=== PATIENT | female | born 1965 | race Asian ===

== ENCOUNTER → 2016-10-08 | Outpatient (CLI) | payer BC ==
[2015-12-28 12:00] VITALS: BP 117/79
--- NOTE | 2016-10-08 16:55 | RAD ---
Pelvic ultrasound to include transabdominal and transvaginal imaging 10/08/2016 Clinical history: Pelvic pain for several months. Technique: Using the distended urinary bladder as a sonographic window, a real-time ultrasound examination of the pelvis was performed. Additionally in attempt to better evaluate the uterus and adnexa, a transvaginal ultrasound study was performed. Multiple images were obtained. Findings: Comparison is made to a CT scan of the abdomen and pelvis dated 08/04/2014. The uterus is normal in size. It measures 8.1 x 5.5 x 4.2 cm in longitudinal, transverse, and AP dimensions. 2 hypoechoic masses consistent with fibroids are seen within the superior uterine body/fundus. These measure 1.2. and 2.1 cm in size. Fluid is seen within the endometrial canal. The endometrial echo complex is not thickened. It measures 4 mm. Nabothian cysts are seen within the cervix which measure 5 mm to 1.4 cm in size. Both ovaries are within normal limits in size and echogenicity. The right ovary measures 1.5 x 1.2 x 1.4 cm in size. Left ovary measures 1.9 x 1.8 x 1.6 cm in size. No adnexal mass is seen. No free fluid is noted. Impression: 1. 2 fibroids are seen within the uterus. These measure 1.2 and 2.1 cm in size. 2. Fluid is seen within the endometrial canal.
== END | disposition home or self-care (01) ==
LOC: US 13:45
PROVIDERS: ATTEND Advanced Practice Midwife
DX: D25.9 Leiomyoma of uterus, unspecified (principal); R10.2 Pelvic and perineal pain
CPT/HCPCS: 76830; 76856

== ENCOUNTER → 2017-05-29 | Day surgery (SDC) | payer BC ==
[2015-12-28 12:00] VITALS: BP 117/79
[~2017-05-29] MED LIST: IV RINGERS SOLUTION,LACTATED 1,000 ML IV ONE; LIDOCAINE 2% PF Vial for OR 5 ML VIAL. ONE; PROPOFOL 20 ML IV ONE
== END | disposition home or self-care (01) ==
LOC: SURG 11:33
PROVIDERS: ATTEND Internal Medicine Gastroenterology
DX: K92.89 Other specified diseases of the digestive system (principal); E03.9 Hypothyroidism, unspecified; I10 Essential (primary) hypertension; Z98.890 Other specified postprocedural states
CPT/HCPCS: 43239; J2704; J3010; J7120; J2001

== ENCOUNTER 2019-05-19 22:34 | Emergency (ER) | payer BC ==
[~2019-05-19] VITALS: Ht 154.9 cm; Wt 46.3 kg
[2019-05-19] MEDS ORDERED: cloNIDine HCL 0.1 MG TABLET PO ONE (23:15)
[2019-05-19 23:45] LABS: BASO # 0.1 x10^3/uL (0.0-0.2); BASO % 1 % (0-3); EOS # 0.1 x10^3/uL (0.0-0.7); EOS % 2 % (0-3); HEMATOCRIT 42.6 % (36.0-47.0); HEMOGLOBIN 14.3 g/dL (12.0-15.5); LYMPH # 1.5 x10^3/uL (1.0-4.8); LYMPH % 17 % (24-48); MEAN CORPUSCULAR HEMOGLOBIN 30 pg (25-35); MEAN CORPUSCULAR HGB CONC 34 g/dL (31-37); MEAN CORPUSCULAR VOLUME 90 fL (79-100); MONO # 0.5 x10^3/uL (0.0-1.1); MONO % 5 % (0-9); NEUT % 76 % (31-73); PLATELET COUNT 233 x10^3/uL (140-400); RED BLOOD COUNT 4.73 x10^6/uL (3.50-5.40); RED CELL DISTRIBUTION WIDTH 13.1 % (11.5-14.5); WHITE BLOOD COUNT 9.2 x10^3/uL (4.0-11.0)
[2019-05-19 23:50] LABS: BACTERIA,URINE 0 /HPF (0-FEW); BILIRUBIN,URINE NEG (NEG); CLARITY,URINE CLEAR; COLOR,URINE YELLOW; GLUCOSE,URINE NEG (NEG); NITRITE,URINE NEG (NEG); RBC,URINE OCC /HPF (0-2); SQUAMOUS EPITHELIAL CELL,UR OCC /LPF; UROBILINOGEN,URINE 0.2 mg/dL (0.2 mg/dL); WBC,URINE OCC /HPF (0-4)
--- NOTE | 2019-05-19 23:50 | PHYS DOC ---
Past History Past Medical History: Hypertension, Hypothyroid Past Surgical History: Appendectomy, Alcohol Use: None Drug Use: None Adult General Chief Complaint Chief Complaint: HYPERTENSION HPI HPI 53-year-old female presents with hypertension. She does not speak [place]. Her daughter provides translation. For the last 4 days, the patient has had elevated blood pressure in the 190s. She presents tonight because she has had headache, dizziness and a blood pressure in the upper 190s. She is concerned about staying this time. The patient is on the Lisinopril 5 mg daily. She took an additional 10 mg at 9 PM, 2 hours prior to arrival. Her blood pressure was still very high. She was recently started on levothyroxine 1 month ago. She has not had repeat labs for TSH. Then a headache and high blood pressure, the patient's been feel ing normal. Nothing else is change in her life. No new medications other than the levothyroxine 75 g daily. She denies fever or chills. Review of Systems Review of Systems Constitutional: Denies fever or chills [] Eyes: Denies change in visual acuity, redness, or eye pain [] HENT: Denies nasal congestion or sore throat [] Respiratory: Denies cough or shortness of breath [] Cardiovascular: No additional information not addressed in HPI [] GI: Denies abdominal pain, nausea, vomiting, bloody stools or diarrhea [] : Denies dysuria or hematuria [] Musculoskeletal: Denies back pain or joint pain [] Integument: Denies rash or skin lesions [] Neurologic: Headache. Denies focal weakness or sensory changes [] Endocrine: Denies polyuria or polydipsia [] All other systems were reviewed and found to be within normal limits, except as documented in this note. Current Medications Current Medications Current Medications Medications (Trade) Dose Ordered Sig/Arvin Start Time Stop Time Status Last Admin Dose Admin Clonidine HCl (Catapres) 0.2 mg 1X ONCE 05/19/19 23:15 05/19/19 23:16 DC 05/19/19 23:13 0.2 MG Allergies Allergies Allergies Coded Allergies Type Severity Reaction Last Updated Verified No Known Drug Allergies 08/04/14 No Physical Exam Physical Exam Constitutional: Well developed, well nourished, no acute distress, non-toxic appearance. [] HENT: Normocephalic, atraumatic, bilateral external ears normal, oropharynx geraldo st, no oral exudates, nose normal. [] Eyes: PERRLA, EOMI, conjunctiva normal, no discharge. [] Neck: Normal range of motion, no tenderness, supple, no stridor. [] Cardiovascular:Heart rate regular rhythm, no murmur [] Lungs & Thorax: Bilateral breath sounds clear to auscultation [] Abdomen: Bowel sounds normal, soft, no tenderness, no masses, no pulsatile masses. [] Skin: Warm, dry, no erythema, no rash. [] Back: No tenderness, no CVA tenderness. [] Extremities: No tenderness, no cyanosis, no clubbing, ROM intact, no edema. [] Neurologic: Alert and oriented X 3, normal motor function, normal sensory function, no focal deficits noted. [] Psychologic: Affect normal, judgement normal, mood anxious. [] Current Patient Data Vital Signs Vital Signs Date Time Temp Pulse Resp B/P (MAP) Pulse Ox O2 Delivery O2 Flow Rate FiO2 05/19/19 23:23 81 18 169/102 (124) 94 Room Air 05/19/19 22:53 98.1 Lab Results Laboratory Tests Test 05/19/19 23:20 White Blood Count 9.2 x10^3/uL (4.0-11.0) Red Blood Count 4.73 x10^6/uL (3.50-5.40) Hemoglobin 14.3 g/dL (12.0-15.5) Hematocrit 42.6 % (36.0-47.0) Mean Corpuscular Volume 90 fL (79-100) Mean Corpuscular Hemoglobin 30 pg (25-35) Mean Corpuscular Hemoglobin Concent 34 g/dL (31-37) Red Cell Distribution Width 13.1 % (11.5-14.5) Platelet Count 233 x10^3/uL (140-400) Neutrophils (%) (Auto) 76 % (31-73) H Lymphocytes (%) (Auto) 17 % (24-48) L Monocytes (%) (Auto) 5 % (0-9) Eosinophils (%) (Auto) 2 % (0-3) Basophils (%) (Auto) 1 % (0-3) Neutrophils # (Auto) 7.0 x10^3uL (1.8-7.7) Lymphocytes # (Auto) 1.5 x10^3/uL (1.0-4.8) Monocytes # (Auto) 0.5 x10^3/uL (0.0-1.1) Eosinophils # (Auto) 0.1 x10^3/uL (0.0-0.7) Basophils # (Auto) 0.1 x10^3/uL (0.0-0.2) EKG EKG [] Radiology/Procedures Radiology/Procedures [] Course & Med Decision Making Course & Med Decision Making Pertinent Labs and Imaging studies reviewed. (See chart for details) The patient's labs are unremarkable. Her urinalysis is negative for infection. I've given her 0.2 mg clonidine and 10 mg of hydralazine. Her blood pressure has improved. I'm not sure why patient is having such elevated blood pressure at this time. I offered to treat her headache and she refused all of the medications. This could be a ellis component of her high blood pressure or a result of the high blood pressure. I'm not sure. I will discharge the patient on 0.2 mg clonidine twice a day as needed. She will follow up with her primary care physician to discuss this further. I have also ordered a TSH so her physician can follow-up on that. She is stable for discharge at this time. [] Dragon Disclaimer Dragon Disclaimer This electronic medical record was generated, in whole or in part, using a voice recognition dictation system. Departure Departure: Impression: Primary Impression: Hypertension Disposition: 01 HOME, SELF-CARE Condition: IMPROVED Referrals: ELISE LAMA (PCP) Patient Instructions: Hypertension Scripts Clonidine Hcl (CLONIDINE HCL) 0.2 Mg Tablet 1 TAB PO BID PRN for hypertension for 10 Days, #20 TAB 0 Refills Prov: MOISÉS MYERS DO 05/20/19 Problem Qualifiers Primary Impression: Hypertension Hypertension type: unspecified Qualified Codes: I10 - Essential (primary) hypertension MOISÉS MYERS DO May 19, 2019 23:50
[2019-05-19 23:56] LABS: ALBUMIN 4.2 g/dL (3.4-5.0); ALBUMIN/GLOBULIN RATIO 1.1 (1.0-1.7); CALCIUM 9.5 mg/dL (8.5-10.1); CREATININE 0.6 mg/dL (0.6-1.0); POTASSIUM 3.4 mmol/L (3.5-5.1); TOTAL BILIRUBIN 0.3 mg/dL (0.2-1.0); TOTAL PROTEIN 7.9 g/dL (6.4-8.2)
[2019-05-20] MEDS ORDERED: KETOROLAC 30 MG/ML VIAL. IVP ONE
[2019-05-20] MEDS ORDERED: diphenhydrAMINE 50 MG/ML VIAL IVP ONE
[2019-05-20] MEDS ORDERED: METOCLOPRAMIDE HCL 10 MG/2 ML VIAL. IVP ONE
[2019-05-20] MEDS ORDERED: CLON-276 PO (00:06)
[2019-05-20] MEDS ORDERED: hydrALAZINE 20 MG/ML VIAL. IV ONE (00:15)
[2019-05-20 00:22] VITALS: BP 132/86
--- NOTE | 2019-05-20 04:04 | EKG ---
[address] [address] Test Date: 2019-05-19 Test Time: 23:30:14 Pat Name: ELISABET VELASQUEZ Department: Room: Gender: F Senior [employer] Consultant: : [id number] Requested By: MOISÉS MYERS Order Number: [id number] Reading MD: Ruiz Martin Measurements Intervals [place] Rate: 73 P: 59 [place]: 156 QRS: 32 QRSD: 86 T: 31 QT: 378 QTc: 420 Interpretive Statements SINUS RHYTHM Electronically Signed On 05-24-2019 14:55:59 PROCUREMENT INSPECTOR by Ruiz Martin
== END 2019-05-20 00:40 | disposition home or self-care (01) ==
LOC: ER 22:34
DX: I10 Essential (primary) hypertension (principal); E03.9 Hypothyroidism, unspecified
CPT/HCPCS: 36415; 80053; 81001; 84443; 84484; 85025; 93005; 96374; 99285; J0360

== ENCOUNTER → 2019-09-09 | Day surgery (SDC) | payer BC ==
[~2019-09-09] MED LIST changes: +CLON-276 PO; +IPRATRPIUM/ALBUTEROL 0.5/2.5MG 3 ML NEBU. NEB PRN; -IV RINGERS SOLUTION,LACTATED 1,000 ML IV ONE; +IV RINGERS SOLUTION,LACTATED 1,000 ML IV SCH; +LEVO25TA55 PO; -LIDOCAINE 2% PF Vial for OR 5 ML VIAL. ONE; +LISI-338 PO; +ONDANSETRON PF 4 MG/2 ML VIAL. IV PRN; +PANT40TA5 PO; +SIMV10TA PO
[2019-09-09 10:30] VITALS: BP 126/85
--- NOTE | 2019-09-10 17:06 | PATHOLOGY ---
[facility] Accession Number: [id number] . 01 Material submitted: . esophagus - ESOPHAGEAL BX . 01 Clinical history: . None provided. . 02 Diagnosis: Esophageal biopsies: - Segments of focally mildly hyperplastic squamous esophageal mucosa showing focal chronic inflammation. LBQ 09/10/2019 1645 Local . 02 Comment: Sections of the esophageal biopsy reveal multiple segments of tangentially oriented, focally mildly hyperplastic squamous esophageal mucosa with focal attached lamina propria and muscularis mucosa showing chronic inflammation. I cannot exclude the possibility of reflux changes. There is no evidence of Tracy's change, dysplasia, or malignancy. (JPM/db; 09/10/2019) . 02 Electronically signed: . Azar Bales MD, Pathologist NPI- [id number] . 01 Gross description: . Received in formalin labeled "[place], esophageal BX rule out gastritis" is a 0.6 x 0.3 x 0.1 cm aggregate of nunez-brown soft tissue fragments. The specimen is submitted entirely in A1. ([facility]; 09/09/2019) [facility] 09/09/2019 1825 Local . 02 Pathologist provided ICD-10: K20.9 . 02 CPT . 284362 Specimen Comment: A courtesy copy of this report has been sent to [phone], [phone] Specimen Comment: [id number] Specimen Comment: Report sent to / DR LAMA Performed at: 01 [facility] [address], [place] [id number] MD Wade Yanez MD Phone: [phone] Performed at: 02 [facility] [address] [place], [place] [id number] MD Azar Bales MD Phone: [phone]
== END ==
LOC: SURG 06:36
PROVIDERS: ATTEND Internal Medicine Gastroenterology
DX: K20.9 Esophagitis, unspecified (principal); I10 Essential (primary) hypertension; E03.9 Hypothyroidism, unspecified; E78.00 Pure hypercholesterolemia, unspecified
CPT/HCPCS: 43239; 43450; 88305; J2704; J7120